=== PATIENT | female | born 1965 | race African-American/Black ===

== ENCOUNTER 2017-10-11 00:48 | Emergency (ER) | payer SELFPAY ==
--- NOTE | 2017-10-11 01:17 | PDOC ---
History of Present Illness - General Stated Complaint: FALL Time Seen by Provider: 10/11/17 00:52 History Source: Patient Exam Limitations: No Limitations - History of Present Illness Initial Comments: 10/11/17 01:21 This is a 52-year-old woman past medical history of MA, CVA 3, PE (on Eliquis) , bilateral DVTs, hypertension, hyperlipidemia, multiple slipped disc in the lumbar spine who presents emergency Department with headache and neck pain status post trip and fall. Patient states she was walking [place] handicapped [place] when the cart carrying all her luggage struck her in the back of the left ankle causing her to fall onto her left side while on the ramp. She states she landed on her left side striking her left ear on the ground during the fall. She denies loss of consciousness. Patient reports full recollection of events immediately prior to, during and immediately after the fall. Patient denies any blurry vision, dizziness, nausea, vomiting, chest pain , shortness of breath, abdominal pain. Past History - Past Medical History Allergies/Adverse Reactions: Allergies Allergy/AdvReac Type Severity Reaction Status Date / Time No Known Allergies Allergy Verified 10/11/17 01:19 Home Medications: Ambulatory Orders NK [No Known Home Medication] 10/11/17 Review of Systems - Review of Systems Able to Perform ROS?: Yes Is the patient limited Serbian proficient: No Constitutional: No: Symptoms Reported HEENTM: Yes: See HPI Respiratory: No: Symptoms reported Cardiac (ROS): No: Symptoms Reported ABD/GI: No: Symptoms Reported : No: Symptoms Reported Musculoskeletal: No: Symptoms Reported Integumentary: No: Symptoms Reported Neurological: No: Symptoms reported Endocrine: No: Symptoms Reported Hematologic/Lymphatic: No: Symptoms Reported *Physical Exam - Physical Exam General Appearance: Yes: Appropriately Dressed. No: Apparent Distress HEENT: positive: TMs Normal, Pharynx Normal Neck: positive: Trachea midline, Supple, Tender lateral (left) Respiratory/Chest: positive: Lungs Clear, Normal Breath Sounds. negative: Respiratory Distress, Accessory Muscle Use Cardiovascular: positive: Regular Rhythm, Regular Rate, Edema (2+ bilateral). negative: Murmur Gastrointestinal/Abdominal: positive: Normal Bowel Sounds, Soft. negative: Tender Musculoskeletal: positive: Normal Inspection, Other (tenderness to the left trapezius). negative: CVA Tenderness, Vertebral Tenderness Extremity: positive: Normal Inspection Integumentary: positive: Normal Color, Dry, Warm Neurologic: positive: ladder operator II-XII NML intact, Fully Oriented, Alert, Normal Mood/ Affect, Normal Response, Motor Strength /5 Medical Decision Making - Medical Decision Making 10/11/17 01:31 A/P: 51-year-old female multiple medical problems with left lateral neck, left upper back pain status post trip and fall today No hemotympanum present No bony tenderness to palpation of the skull No septal hematoma noted Oropharynx clear without erythema or exudates. No loose teeth, blood, edema present Tenderness to left sternocleidomastoid extending into the left trapezius No vertebral tenderness Full range of motion of bilateral shoulders Lungs clear to auscultation bilaterally RRR. No murmur rub or gallop noted. Abdomen soft nontender nondistended Palpation of the spine reveals no step offs, crepitus or deformities. CT of head and C-spine Tylenol 1 g now Reassess 10/11/17 03:42 CT of head as read by imaging environmental science program director: Ventricle system is midline and not dilated. The sulcal pattern is normal for the patient's age. Mild small vessel ischemic changes are noted. There is no bleed, mass, extra-axial fluid collection or mass effect. This no skull fracture skull lesion is identified. Visualized paranasal sinuses and mastoid air cells are clear. Impression: No acute pathology. CT of C-spine as read by imaging environmental science program director: There is no fracture, subluxation, prevertebral soft tissue swelling. There are moderate degenerative changes. Lung apices are clear. A 3.1 cm partially calcified left thyroid masses noted. Impression: No fracture. 3.1 cm partially calcified left thyroid mass to be further evaluated MRI is clinically warranted. Patient's states her pain is only minimally relieved with the Tylenol. Patient states she is ALLERGIC to NSAID medication and IV contrast. I'll give the patient 5 mg of Valium orally now and reevaluate. 10/11/17 04:21 Patient reports improved pain relief after receiving Valium. I will discharge the patient home to follow up with primary doctor. *DC/Admit/Observation/Transfer Diagnosis at time of Disposition: Muscle pain, cervical - Discharge Dispostion Disposition: HOME Condition at time of disposition: Fair Admit: No - Referrals - Patient Instructions Additional Instructions: Take Tylenol as needed for pain. Follow manufacturers instructions for appropriate dosage. Try not to walk or bear weight as much as possible for the next 3 days. Warm moist heat applied to your neck may help alleviate pain. Return to emergency department for any concerns. Thank you very much for choosing us to provide your emergent healthcare needs. - Post Discharge Activity
[2017-10-11 01:19] VITALS: BP 164/119; PULSE 96; TEMP 97.9; BMI 40.3
[2017-10-11] MEDS ORDERED: ACETAMINOPHEN 500 MG TABLET (FP) PO ONE (01:31)
[2017-10-11] MEDS ORDERED: ACETAMINOPHEN 325 MG TABLET (FP) ONE (02:03)
[2017-10-11] MEDS ORDERED: diazePAM 5 MG TABLET PO ONE (03:43)
[2017-10-11] MEDS ORDERED: diazePAM 5 MG TABLET ONE (04:00)
--- NOTE | 2017-10-11 15:31 | EKG ---
Test Reason : Blood Pressure : / mmHG Vent. Rate : 089 BPM Atrial Rate : 089 BPM P-R Int : 202 ms QRS Dur : 096 ms QT Int : 402 ms P-R-T Axes : 037 -11 163 degrees QTc Int : 489 ms NORMAL SINUS RHYTHM VOLTAGE CRITERIA FOR LEFT VENTRICULAR HYPERTROPHY T WAVE ABNORMALITY, CONSIDER LATERAL ISCHEMIA PROLONGED QT ABNORMAL ECG NO PREVIOUS ECGS AVAILABLE Confirmed by JUNIOR HU MD ([id number]) on 10/11/2017 3:31:19 PM Referred By: Confirmed By:JUNIOR HU MD
== END 2017-10-11 04:49 | disposition home or self-care (01) ==
LOC: SUPCPDRO 00:48 → JER 00:48
DX: S19.89XA Other specified injuries of other specified part of neck, initial encounter (principal); M54.2 Cervicalgia; W18.09XA Striking against other object with subsequent fall, initial encounter; Y93.01 Activity, walking, marching and hiking; Y92.522 Railway station as the place of occurrence of the external cause; Y99.8 Other external cause status; I25.2 Old myocardial infarction; I10 Essential (primary) hypertension; E78.5 Hyperlipidemia, unspecified; Z86.718 Personal history of other venous thrombosis and embolism; Z86.73 Personal history of transient ischemic attack (TIA), and cerebral infarction without residual deficits; Z86.711 Personal history of pulmonary embolism; Z79.01 Long term (current) use of anticoagulants
CPT/HCPCS: 70450-TC; 72125-TC; 93005; 93010; 99281-25